=== PATIENT | female | born 1945 | race Caucasian/White ===

== ENCOUNTER 2016-09-03 11:11 | Emergency (ER) | payer MEDICARE, OTHER ==
[2016-09-03] MEDS ORDERED: ELIQUIS5 MG (11:57)
[2016-09-03] MEDS ORDERED: SOTALOL HYDROC120 MG (11:57)
[2016-09-03] MEDS ORDERED: ZYLOPRIM 300MG300 MG (11:58)
[2016-09-03] MEDS ORDERED: HYZAAR 50-12.51 EACH (11:58)
[2016-09-03] MEDS ORDERED: NEXIUM 40MG40 MG (11:59)
[2016-09-03] MEDS ORDERED: ADVAIR 100/28 DISKU1 (11:59)
[2016-09-03] MEDS ORDERED: SINGULAIR (11:59)
[2016-09-03] MEDS ORDERED: MOMETASONE0.05 MG/Ac NAS (12:00)
[2016-09-03] MEDS ORDERED: POTASSIUM CH2 MEQ/ML (12:00)
[2016-09-03] MEDS ORDERED: ALLEGRA ALLERG180 MG PO (12:00)
[2016-09-03] MEDS ORDERED: NEURONTIN300 M1 PO (12:01)
[2016-09-03] MEDS ORDERED: REGLAN10 M2 (12:01)
[2016-09-03] MEDS ORDERED: DICLOFENAC SOD150 ML TOP (12:02)
[2016-09-03] MEDS ORDERED: CENTRUM SILVER1 EACH PO (12:02)
[2016-09-03] MEDS ORDERED: OMEGA-3 FISH O1 EAC5 (12:03)
[2016-09-03] MEDS ORDERED: ALOE VERA25 M1 (12:03)
[2016-09-03] MEDS ORDERED: EYE DROP ORIGIN15 ML (12:04)
[2016-09-03] MEDS ORDERED: CULTURELLE1 EACH (12:05)
[2016-09-03] MEDS ORDERED: EMU OIL (12:05)
[2016-09-03] MEDS ORDERED: MUCINEX1200 MG (12:06)
[2016-09-03] MEDS ORDERED: GAS-X EXTRA ST125 MG (12:06)
[2016-09-03] MEDS ORDERED: ALEVE220 M1 PO (12:07)
[2016-09-03] MEDS ORDERED: MASON NATURAL600 MG (12:07)
[2016-09-03] MEDS ORDERED: MECLIZINE PO (15:11)
[2016-09-03] MEDS ORDERED: PHENERGAN 25 TA25 MG PO (15:11)
[2016-09-03 15:24] VITALS: BP 136/72
== END 2016-09-03 15:25 | disposition home or self-care (01) ==
LOC: ED 11:11
DX: I48.91 Unspecified atrial fibrillation (principal); R42 Dizziness and giddiness
CPT/HCPCS: J2550

== ENCOUNTER → 2016-11-13 | Outpatient (CLI) | payer MEDICARE, OTHER ==
[~2016-11-13] MED LIST: ADVAIR 100/28 DISKU1; ALEVE220 M1 PO; ALLEGRA ALLERG180 MG PO; ALOE VERA25 M1; CENTRUM SILVER1 EACH PO; CULTURELLE1 EACH; DICLOFENAC SOD150 ML TOP; ELIQUIS5 MG; EMU OIL; EYE DROP ORIGIN15 ML; GAS-X EXTRA ST125 MG; HYZAAR 50-12.51 EACH; MASON NATURAL600 MG; MECLIZINE PO; MOMETASONE0.05 MG/Ac NAS; MUCINEX1200 MG; NEURONTIN300 M1 PO; NEXIUM 40MG40 MG; OMEGA-3 FISH O1 EAC5; PHENERGAN 25 TA25 MG PO; POTASSIUM CH2 MEQ/ML; REGLAN10 M2; SINGULAIR; SOTALOL HYDROC120 MG; ZYLOPRIM 300MG300 MG
== END ==
LOC: RAD 13:00
DX: M54.2 Cervicalgia (principal)

== ENCOUNTER 2017-04-25 11:00 | Outpatient (RCR) | payer MEDICARE, OTHER | END 2017-04-25 11:30 | disposition home or self-care (01) | LOC: PT 11:00 | DX: M54.5 Low back pain (principal); M41.9 Scoliosis, unspecified; M51.37 Other intervertebral disc degeneration, lumbosacral region | CPT/HCPCS: G8978-GP; G8979-GP ==

== ENCOUNTER → 2018-03-08 | Outpatient (CLI) | payer MEDICARE, OTHER | LOC: RAD 13:18 | DX: M18.12 Unilateral primary osteoarthritis of first carpometacarpal joint, left hand (principal); M89.8X4 Other specified disorders of bone, hand ==

== ENCOUNTER 2018-08-12 14:02 | Emergency (ER) | payer MEDICARE, OTHER ==
[~2018-08-12] VITALS: Ht 154.9 cm; Wt 90.9 kg
[2018-08-12 14:57] LABS: ALBUMIN 3.5 g/dL (3.5-5.0); CALCIUM 8.7 mg/dL (8.4-10.2); POTASSIUM 4.1 mmol/L (3.6-5.0); TOTAL PROTEIN 6.7 g/dL (6.3-8.2)
[2018-08-12 15:08] LABS: HEMOGLOBIN 12.5 g/dL (12.5-16.0); MEAN CELL VOLUME 100 fl (78-100); MEAN CORPUSCULAR HEMOGLOBIN 34 pg (27-31); MEAN CORPUSCULAR HGB CONC 34 g/dL (33-37); MEAN PLATELET VOLUME 10.2 fl (7.4-10.4); PLATELET COUNT 144 K/mm3 (130-400); RED BLOOD COUNT 3.69 M/mm3 (4.10-5.30); RED CELL DISTRIBUTION WIDTH 13.2 % (11.5-14.5); WHITE BLOOD COUNT 14.1 K/mm3 (4.8-10.8)
[2018-08-12 15:11] LABS: LYMPHOCYTE 10 % (20-51); MONOCYTE 6 % (3-10); NEUTROPHILS 84 % (42-75)
[2018-08-12] MEDS ORDERED: SOTALOL HCL120 MG PO (15:31)
[2018-08-12] MEDS ORDERED: SPIRIVA RE2.5 MCG/Ac IH (15:31)
[2018-08-12] MEDS ORDERED: METHOCARBAMOL500 M1 PO (15:31)
[2018-08-12] MEDS ORDERED: RT ALBUTEROL CC18 GM IH (15:32)
[2018-08-12] MEDS ORDERED: FLUTICASON0.05 MG/AC NS (15:33)
[2018-08-12 15:35] LABS: URINE APPEARANCE CLOUDY; URINE BILIRUBIN NEGATIVE (NEGATIVE); URINE BLOOD 250 ery/uL (NEGATIVE); URINE COLOR YELLOW; URINE GLUCOSE NEGATIVE (NEGATIVE); URINE KETONE NEGATIVE (NEGATIVE); URINE NITRATE NEGATIVE (NEGATIVE); URINE PROTEIN(semi-quant) 2+ mg/dL (NEGATIVE); URINE UROBILINOGEN NORMAL (NORMAL)
[2018-08-12] MEDS ORDERED: ACETAMINOPHEN-O1 TAB PO (15:35)
[2018-08-12] MEDS ORDERED: ZYRTEC10 M3 PO (15:35)
[2018-08-12 15:36] LABS: URINE LEUKOCYTE ESTERASE 2+ (NEGATIVE)
[2018-08-12] MEDS ORDERED: BIOTIN PLUS KE1 EACH PO (15:36)
[2018-08-12 15:37] LABS: URINE WBC >50 /hpf (0-3)
[2018-08-12 17:44] VITALS: BP 124/40
== END 2018-08-12 17:46 | disposition short-term general hospital (02) ==
LOC: ED 14:02
PROVIDERS: Nurse Practitioner Primary Care
DX: E86.0 Dehydration (principal); N17.9 Acute kidney failure, unspecified; N39.0 Urinary tract infection, site not specified; I10 Essential (primary) hypertension; I48.91 Unspecified atrial fibrillation; J45.909 Unspecified asthma, uncomplicated; Z88.6 Allergy status to analgesic agent; Z79.01 Long term (current) use of anticoagulants
CPT/HCPCS: A4216; J0696; J7030

== ENCOUNTER → 2022-01-04 | Outpatient (CLI) | payer MEDICARE, OTHER ==
[~2022-01-04] MED LIST changes: +ACETAMINOPHEN-O1 TAB PO; +BIOTIN PLUS KE1 EACH PO; +FLUTICASON0.05 MG/AC NS; +METHOCARBAMOL500 M1 PO; +RT ALBUTEROL CC18 GM IH; +SOTALOL HCL120 MG PO; +SPIRIVA RE2.5 MCG/Ac IH; +ZYRTEC10 M3 PO
== END ==
LOC: RAD 13:52 → MAMMO 14:30
DX: Z13.820 Encounter for screening for osteoporosis (principal); M85.80 Other specified disorders of bone density and structure, unspecified site

== ENCOUNTER 2024-02-04 16:26 | Emergency (ER) | payer MEDICARE, OTHER ==
[~2024-02-04] VITALS: Ht 157.5 cm; Wt 70.5 kg
[~2024-02-04 16:26] MED LIST changes: +ALDACTONE 25MG25 MG PO; +CULTURELLE PRO1 EACH PO; +FUROSEMIDE20 MG PO; +GAS-X EXTRA ST125 MG PO; +KETOROLAC10 MG PO; +LOSARTAN POTAS100 MG PO; +MYSOLINE50 M1 PO; +OASIS TEARS; +PRO-OMEGA PO; +VITAMIN D PO; +ZYLOPRIM 100MG100 MG PO; +ZYRTEC ALLERGY10 MG PO; +[UNRECOGNIZED DRUG - OTHER] PO; +[UNRECOGNIZED DRUG - OTHER] PO; +[UNRECOGNIZED DRUG - REMARK]; +[UNRECOGNIZED DRUG - REMARK] TP
[2024-02-04] MEDS ORDERED: NEURONTIN300 MG/CAP (17:04)
[2024-02-04] MEDS ORDERED: COZAAR100 MG PO (17:05)
[2024-02-04] MEDS ORDERED: TEZSPIRE210 MG/1.1 SQ (17:07)
[2024-02-04] MEDS ORDERED: OMEGA 3 1,0001 EACH PO (17:09)
[2024-02-04 18:40] VITALS: BP 128/69
== END 2024-02-04 18:50 | disposition home or self-care (01) ==
LOC: ED 16:26
DX: M25.552 Pain in left hip (principal); G25.1 Drug-induced tremor; T38.0X5A Adverse effect of glucocorticoids and synthetic analogues, initial encounter; R45.0 Nervousness

== ENCOUNTER → 2024-07-08 | Day surgery (SDC) | payer MEDICARE, OTHER ==
[~2024-07-08] MED LIST changes: +COZAAR100 MG PO; +Iohexol 300 - 10 ML VIAL MC ONE; +Lidocaine PF 2% (20 MG/ML) 2 ML VIAL IJ ONE; +NEURONTIN300 MG/CAP; +OMEGA 3 1,0001 EACH PO; +TEZSPIRE210 MG/1.1 SQ
== END ==
LOC: WKSPAIN 08:11
DX: M47.812 Spondylosis without myelopathy or radiculopathy, cervical region (principal); M54.12 Radiculopathy, cervical region; G89.29 Other chronic pain

== ENCOUNTER → 2024-08-07 | Outpatient (CLI) | payer MEDICARE, OTHER ==
[~2024-08-07] MED LIST changes: -Iohexol 300 - 10 ML VIAL MC ONE; -Lidocaine PF 2% (20 MG/ML) 2 ML VIAL IJ ONE
== END ==
LOC: RAD 14:27
DX: J22 Unspecified acute lower respiratory infection (principal)

== ENCOUNTER → 2024-09-02 | Outpatient (CLI) | payer MEDICARE, OTHER | LOC: RAD 15:17 | DX: M51.34 Other intervertebral disc degeneration, thoracic region (principal); M41.84 Other forms of scoliosis, thoracic region; M47.896 Other spondylosis, lumbar region; M43.16 Spondylolisthesis, lumbar region; M41.86 Other forms of scoliosis, lumbar region; Z98.890 Other specified postprocedural states ==